=== PATIENT | female | born 1990 | race Caucasian/White ===

== ENCOUNTER 2017-01-25 11:34 | Inpatient (IN) | payer OTHER ==
[2017-01-25 12:36] LABS: Hematocrit 40 % (35-47); Hemoglobin 13.7 g/dl (12.0-16.0); Mean Corpuscular HGB Conc 35 g/dl (31-36); Mean Corpuscular Hemoglobin 31 pg (27-31); Mean Corpuscular Volume 90 fL (80-97); Mean Platelet Volume 9 um3 (7.4-10.4); Red Blood Count 4.37 10^6/ul (4.0-5.4); Red Cell Distribution Width 14 % (10.5-15); White Blood Count 11.4 10^3/ul (3.5-10.8)
[2017-01-25 12:39] LABS: Urine Total Protein/24HR 4096 mg/24Hr (0-165)
[2017-01-25 12:51] LABS: BUN/Creatinine Ratio 20.8 (8-20); EGFR African American 179.3 (>60); EGFR Non-African American 139.4 (>60); Globulin 2.8 g/dL (2-4); Potassium 4.2 mmol/L (3.5-5.0); Total Bilirubin 0.4 mg/dL (0.2-1.0); Total Protein 5.8 g/dL (6.4-8.9); Uric Acid 4.2 mg/dL (2.3-6.6)
[2017-01-25] MEDS ORDERED: Oxytocin in LR* 20 UNITS/1,000 ML BAG IVPB SCH (14:00)
[2017-01-25] MEDS ORDERED: Dinoprostone* 10 MG VAG.SUPP VAGINAL ONE (23:00)
[2017-01-26 11:42] LABS: Hematocrit 37 % (35-47); Hemoglobin 12.8 g/dl (12.0-16.0); Mean Corpuscular HGB Conc 35 g/dl (31-36); Mean Corpuscular Hemoglobin 32 pg (27-31); Mean Corpuscular Volume 91 fL (80-97); Mean Platelet Volume 10 um3 (7.4-10.4); Red Blood Count 4.02 10^6/ul (4.0-5.4); Red Cell Distribution Width 14 % (10.5-15); White Blood Count 13.8 10^3/ul (3.5-10.8)
[2017-01-26 11:55] LABS: Calcium 8.8 mg/dL (8.6-10.3); Globulin 2.7 g/dL (2-4); Total Bilirubin 0.4 mg/dL (0.2-1.0); Total Protein 5.7 g/dL (6.4-8.9)
[2017-01-26] MEDS ORDERED: Oxytocin in LR* 20 UNITS/1,000 ML BAG IVPB SCH (12:00)
[2017-01-26] MEDS ORDERED: D5LR 1000 ML BAG* 1,000 ML IV SCH (12:00)
[2017-01-26 12:38] LABS: BUN/Creatinine Ratio 20.4 (8-20); EGFR African American 196.3 (>60); EGFR Non-African American 152.7 (>60)
[2017-01-26] MEDS ORDERED: Nalbuphine* 20 MG/ML 1 ML VIAL IV ONE (19:47)
[2017-01-26] MEDS ORDERED: Nalbuphine* 20 MG/ML 1 ML VIAL ONE (19:48)
[2017-01-26] MEDS ORDERED: Promethazine INJ(RESTRICTED)* 25 MG/ML 1 ML VIAL IV ONE (19:49)
[2017-01-26] MEDS ORDERED: Promethazine INJ(RESTRICTED)* 25 MG/ML 1 ML VIAL ONE (19:49)
[2017-01-27] MEDS ORDERED: Clindamycin 900 MG IVPREMIX(* 900 MG/50 ML SDV IV ONE (01:29)
[2017-01-27] MEDS ORDERED: Gentamicin ADULT (*) 250 MG in NS 0.9% 100 ML* 100 ML IVPB ONE (01:31)
[2017-01-27] MEDS ORDERED: Zolpidem TAB* 5 MG PO PRN (01:43)
[2017-01-27] MEDS ORDERED: Dibucaine 1% 28.35 GM TUBE PR PRN (01:43)
[2017-01-27] MEDS ORDERED: Witch Hazel PAD* JAR TOPICAL PRN (01:43)
[2017-01-27] MEDS ORDERED: Glycerin ADULT SUPP PR PRN (01:43)
[2017-01-27] MEDS ORDERED: Morphine PF AMP (0.5MG/ML)* 5 MG/10 ML AMP ONE (02:00)
[2017-01-27] MEDS ORDERED: Sodium Citrate/Citric Acid* 15 ML UDC ONE (02:02)
[2017-01-27] MEDS ORDERED: OXYTOCIN* 10 UNITS/ML 1 ML VIAL ONE (02:49)
[2017-01-27] MEDS ORDERED: Ketorolac INJ* 30 MG/ML 1 ML VIAL ONE (03:16)
[2017-01-27] MEDS ORDERED: Ondansetron INJ* 2 MG/ML VIAL ONE (03:16)
[2017-01-27] MEDS ORDERED: fentaNYL* 50 MCG/ML 2 ML VIAL (100 MCG VIAL) ONE (03:20)
[2017-01-27] MEDS ORDERED: fentaNYL* 50 MCG/ML 2 ML VIAL (100 MCG VIAL) IV PRN (03:54)
[2017-01-27] MEDS ORDERED: DiMENhydriNATE IV* 50 MG/ML VIAL IV PUSH PRN (03:54)
[2017-01-27] MEDS ORDERED: diPHENhydraMINE IV* 50 MG/ML 1 ml VIAL (BENADRYL) IV PRN (03:55)
[2017-01-27] MEDS ORDERED: Naloxone* 0.4 MG/ML 1 ML VIAL IV PRN (03:55)
[2017-01-27] MEDS ORDERED: Ketorolac INJ* 30 MG/ML 1 ML VIAL IV PRN (03:55)
[2017-01-27] MEDS ORDERED: Ondansetron INJ* 2 MG/ML VIAL IV PRN (03:55)
[2017-01-27] MEDS ORDERED: Lidocaine 1% MPF* 2 ML VIAL ONE (06:56)
[2017-01-27] MEDS: Docusate CAP* 100 MG PO SCH ×3 (08:10→21:35)
[2017-01-27] MEDS: Simethicone TAB* 80 MG TAB.CHEW PO SCH ×3 (08:10→13:46)
[2017-01-27] MEDS: Ibuprofen TAB* 600 MG PO SCH ×3 (08:10→19:23)
[2017-01-28] MEDS: oxyCODONE/Acetamin 5/325 MG* TAB PO PRN ×4 (00:01→18:08)
[2017-01-28] MEDS: Ibuprofen TAB* 600 MG PO SCH ×6 (01:54→20:40)
[2017-01-28] MEDS: Simethicone TAB* 80 MG TAB.CHEW PO SCH ×6 (02:19→19:37)
--- NOTE | 2017-01-28 06:43 | OP ---
DATE OF OPERATION: 01/27/17 - ROOM #117 DATE OF : 89 SURGEON: Carola Whaley MD FLY SETTER: Mk Rivera MD ANESTHESIOLOGIST: Dr. Valdez. ANESTHESIA: Spinal. PRE-OP DIAGNOSES: 37 plus 2 weeks' gestation, preeclampsia, and arrest of dilation. POST-OP DIAGNOSES: 37 plus 2 weeks' gestation, preeclampsia, and arrest of dilation. OPERATIVE PROCEDURE: Primary low transverse section. INDICATIONS: This patient is a 26-year-old 1, para 0, diagnosed with gestational hypertension several weeks ago. Earlier this week, she was noted to have 3+ protein in her urine in the office. A 24-hour urine protein was repeated and there was 4000 mg of protein in her urine. She was diagnosed with preeclampsia and, considering she was 37 weeks, recommended to start induction of labor. She was initially given Pitocin which did not result in any progress. She received Cervidil the night of her admission. By the next day, she was 2 cm dilated. Pitocin was restarted and she progressed to about 3 cm, but over the next 8 hours, she did not have any further progress. This was despite regular contractions which were more than adequate measured with an IUPC. Considering the lack of progress for many hours, I recommended proceeding with primary section. The patient was extensively counseled and agreed and consent was signed. ESTIMATED BLOOD LOSS: 800 cc. URINE OUTPUT: None. IV FLUIDS: 1500 cc lactated Ringer's. MATERIALS TO LAB: Cord blood. FINDINGS: Normal-appearing uterus, fallopian tubes, and ovaries. Delivery was productive of a 6-pound 0-ounce female with 's of 9 and 9. Time of delivery was 0300. The infant had significant caput which had formed on the head and this was off-center consistent with asynclitism. COMPLICATIONS: None. DESCRIPTION OF PROCEDURE: The risks, benefits, and alternatives were described to the patient and informed consent was obtained. The patient was taken to the operating room with IV running where spinal anesthesia was induced and found to be adequate. The patient was prepped and draped in the normal sterile fashion in the dorsal supine position with leftward tilt. A Pfannenstiel skin incision was made with a scalpel and this was carried down to the underlying fascia sharply. The fascia was then scored in the midline with the scalpel. The incision was extended using Marie scissors. The rectus muscles were dissected off the rectus fascia using blunt and sharp dissection. The rectus muscles were in the midline bluntly. The peritoneum was also entered bluntly. A bladder blade was placed. A bladder flap was created sharply using Metzenbaum scissors. A low transverse uterine incision was made with the scalpel. This was carried down to the amniotic cavity which was productive of clear fluid. The incision was extended with blunt traction. The head was elevated to the level of the incision without difficulty and delivered through the incision. With fundal pressure, the shoulders and body delivered without difficulty. The infant had excellent tone and cried immediately on delivery. The cord was doubly clamped and cut. The infant was then handed to the awaiting test examiner. Cord blood was collected. The placenta then delivered with manual extraction. The uterus was then exteriorized and cleared of all clots and debris. Uterine incision was reapproximated using 0 Polysorb in a running-locked fashion. A second layer of imbricating sutures of 0 Polysorb was also placed with good hemostasis. The posterior cul-de-sac was irrigated with saline. The uterus was then returned to the abdomen, and the incision was reinspected and noted to be hemostatic. The peritoneum was closed with 3-0 Polysorb in a running fashion. The fascia was closed with 0 Polysorb in a running fashion. Subcutaneous tissues were reapproximated using 3-0 Polysorb in interrupted stitches. The skin was then closed with vince and covered with a sterile bandage. The patient tolerated the procedure well. Sponge, lap, and needle counts were correct x2. [id number]/[facility] #: [id number] [facility] CENTERWard
[2017-01-28 06:52] LABS: Hematocrit 32 % (35-47); Hemoglobin 10.7 g/dl (12.0-16.0); Mean Corpuscular HGB Conc 34 g/dl (31-36); Mean Corpuscular Hemoglobin 32 pg (27-31); Mean Corpuscular Volume 93 fL (80-97); Mean Platelet Volume 9 um3 (7.4-10.4); Red Cell Distribution Width 14 % (10.5-15); White Blood Count 10.5 10^3/ul (3.5-10.8)
[2017-01-28] MEDS: Docusate CAP* 100 MG PO SCH ×3 (07:49→20:40)
[2017-01-28] MEDS ORDERED: RHO D Immune Globulin (HUMAN)* 300 MCG = 1,500 I.U. INJ IM ONE (14:14)
--- NOTE | 2017-01-28 15:33 | PTEDU ---
Patient Name: SHARON MARIEE SHARON MARIEE selected video: Follow Me Mum: [facility] to view on 04/2017 at 3:32:25 PM [id number]
[2017-01-28] MEDS ORDERED: oxyCODONE/Acetamin 5/325 MG* TAB PO PRN ×2 (18:21)
[2017-01-29] MEDS: Ibuprofen TAB* 600 MG PO SCH ×2 (03:00→09:10)
[2017-01-29 08:18] VITALS: BP 143/91
[2017-01-29] MEDS: Docusate CAP* 100 MG PO SCH (09:10)
[2017-01-29] MEDS: Simethicone TAB* 80 MG TAB.CHEW PO SCH ×2 (09:12→12:30)
== END 2017-01-29 15:00 | disposition home or self-care (01) | DRG 540 ==
LOC: MCHOBOUT 11:34 → MCHOB 13:17
PROVIDERS: ADMIT Obstetrics & Gynecology; ATTEND Obstetrics & Gynecology
PROC: 3E033VJ Introduction of Other Hormone into Peripheral Vein, Percutaneous Approach (ICD-10-PCS; 2017-01-27)
PROC: 10D00Z1 Extraction of Products of Conception, Low, Open Approach (ICD-10-PCS; principal; 2017-01-27 02:14)
DX: O62.0 Primary inadequate contractions (principal); Z88.0 Allergy status to penicillin; O14.04 Mild to moderate pre-eclampsia, complicating childbirth; Z3A.37 37 weeks gestation of pregnancy; Z37.0 Single live birth
CPT/HCPCS: 36415; 76815; 80053; 84156; 84550; 85025; 85027; 85461; 86850; 86900; 86901; A9270-GY; J1580; J1885; J2300; J2405; J2550; J2590; J2790; J3010